=== PATIENT | female | born 1965 | race Caucasian/White ===

== ENCOUNTER 2022-07-31 14:21 | Outpatient (CLI) | payer OTHER, SELFPAY ==
[2022-07-31 14:53] LABS: Kit Draw Collected
== END 2022-07-31 14:22 | disposition home or self-care (01) ==
LOC: ANHGOSHLAB 14:23
PROVIDERS: PCP Internal Medicine; Visit Provider Clinical Nurse Specialist
DX: E78.5 Hyperlipidemia, unspecified (principal); R23.2 Flushing; M54.9 Dorsalgia, unspecified; Z13.228 Encounter for screening for other metabolic disorders
CPT/HCPCS: 36415

== ENCOUNTER 2022-08-20 13:34 | Outpatient (CLI) | payer OTHER, SELFPAY ==
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
== END 2022-08-20 13:35 ==
PROVIDERS: PCP Internal Medicine; Visit Provider Nurse Practitioner
DX: M47.892 Other spondylosis, cervical region (principal)
CPT/HCPCS: 72040

== ENCOUNTER 2022-08-28 11:00 | Outpatient (CLI) | payer OTHER, SELFPAY ==
--- NOTE | 2022-08-31 12:07 | WPDHOLTEREM ---
Holter/Event Monitor Holter/Event Monitor Date of procedure: 08/28/22 Holter/Event Procedure: 48 Hr Holter Monitor Indications: Palpitations Conclusion: 1. 48 hour holter monitor on 08/28/22. 2. Predominant rhythm is sinus rhythm. HR range 54-167 bpm; average 87 bpm. HR at 167 bpm was sinus tachycardia at 08:46. 3. There are 2,558 premature supraventricular complexes, 869 supraventricular couplets. There are 518 episodes of atrial tachycardia, fastest at 174 bpm and longest lasting 35 beats. 4. There are 671 premature ventricular complexes, 4 ventricular couplets, 16 ventricular bigeminy and 6 ventricular trigeminy. No ventricular tachycardia. 5. No sinoatrial or atrioventricular blocks. No significant pauses greater than 2 seconds. 6. No symptoms available for correlation.
== END 2022-08-28 11:01 | disposition home or self-care (01) ==
PROVIDERS: PCP Internal Medicine; Visit Provider Clinical Nurse Specialist
DX: R00.2 Palpitations (principal)
CPT/HCPCS: 93225; 93226

== ENCOUNTER 2024-03-30 15:19 | Outpatient (CLI) | payer OTHER, SELFPAY ==
--- OUTSIDE RECORDS SUMMARY | 2024-03-30 17:58 | XMS_ITS | Clinical Summary ---
Author Organization [facility] Address [address] [place] [address] Phone Care Team Providers Care Carry Out Clerk And Shelf Stocker Name Role Phone Richie Ellis DO Primary Care Provider Allergies No known active allergies Medications methylPREDNISol one (Medrol) 4 MG Tablet Therapy PackIndications :Allergic reaction, initial encounter Use as per instructions on package. 21 Tablet Active Active Problems No known active problems Family History Medical History Relation Name Comments Diabetes Maternal Grandmother Cancer Mother Relation Name Status Comments Maternal Grandmother Mother Social History Tobacco Use Types Packs/Day Years Used Date Smoking Tobacco: Never Smokeless Tobacco: Never Comments No Sex and Gender Information Value Date Recorded Sex Assigned at Not on file Legal Sex Female 5:25 PM CDT Gender Identity Not on file Sexual Orientation Not on file Last Filed Vital Signs Vital Sign Reading Time Taken Comments Blood Pressure 110/78 05/31/2020 8:07 AM CDT Pulse 89 05/31/2020 8:07 AM CDT Temperature 36.2 C (97.1 F) 05/31/2020 8:07 AM CDT Respiratory Rate 20 10/11/2018 5:53 PM CDT Oxygen Saturation 99% 05/31/2020 8:07 AM CDT Inhaled Oxygen Concentration - - Weight 56.7 kg (125 lb) 10/11/2018 5:53 PM CDT Height 160 cm (5' 3 ) 10/11/2018 5:53 PM CDT Body Mass Index 22.14 10/11/2018 5:53 PM CDT Plan of Treatment Health Maintenance Due Date Last Done Comments Hepatitis C Virus (HCV) Screening 1966 TdaP Immunization 1966 Hepatitis B Immunization (1 of 3 - 19+ 3-dose series) 1985 Pap Smear 08/17/1987 Cervical Cancer Screening (CCS) 1996 HPV/Cotest 1996 Colonoscopy 08/17/2011 Colorectal Cancer Screening 08/17/2011 Cologuard 2016 Immunochemical Fecal Occult Blood 2016 Mammogram 2016 Pneumococcal Immunization (5 0+ years) (1 of 1 - PCV) 2016 Zoster Immunization (1 of 2) 2016 Influenza Immunization (#1) 2023 SARS-COV-2 Immunization ( season) 2023 02/14/2021, 05/21/2020, 04/29/2020 Respiratory Syncytial Virus (RSV) Immunization (Adult) (1 - 1-dose 75+ series) 2041 Meningococcal Immunization (ACWY) Aged Out No longer eligible b ased on patient's age to complete this topic Pneumococcal Immunization Combined Aged Out No longer eligible b ased on patient's age to complete this topic Rotavirus Immunization Aged Out No lo nger eligible based on patient's age to complete this topic Care Teams Carry Out Clerk And Shelf Stocker Relationship Specialty Start Date End Date Richie Ellis DO [facility] [place] [address] PCP - General Internal Medicine 10/11/18
--- OUTSIDE RECORDS SUMMARY | 2024-03-30 17:58 | XMS_ITS | Clinical Summary ---
Author Organization [facility] Address [address] [place] [address] Phone Care Team Providers Care Telecom Sales Consultant Name Role Phone Maru Nash MD Primary Care Provider [phone] Allergies No known active allergies Medications multivitamin (DAILY-KRAIG) tablet Take 1 Tab by mouth daily. Active cyanocobalamin 1,000 mcg Tablet Take 1,000 mcg by mouth daily. Active vitamin E 1,000 unit Capsule Take 1,000 Units by mouth daily. Active Cholecalciferol, Vitamin D3, 1,000 unit Tablet Take 1,000 Units by mouth. Active acetaminophen-co deine (TYLENOL #3) 300-30 mg tablet Take 1 Tab by mouth every 4 hours as needed for Pain, Moderate. 10 Tab 0 10/02/2013 Active Active Problems No known active problems Encounters Date Type Department Care Team Description 03/03/2024 External Device Data [facility] ABSTRACTION Provider, Abstract 02/18/2024 External Device Data [facility] ABSTRACTION Provider, Abstract from Last 3 Months Social History Tobacco Use Types Packs/Day Years Used Date Smoking Tobacco: Never Alcohol Use Standard Drinks/Week Comments No 0 (1 standard drink = 0.6 oz pur e alcohol) Comments No Sex and Gender Information Value Date Recorded Sex Assigned at Not on file Legal Sex Female 10:04 AM CDT Gender Identity Not on file Sexual Orientation Not on file 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 Not on file Not on file Not on file Not on file Not on file Not on file Not on file Last Filed Vital Signs Vital Sign Reading Time Taken Comments Blood Pressure 112/60 03/30/2014 10:46 AM SCREEN TACKER Pulse 60 03/30/2014 10:46 AM SCREEN TACKER Temperature 37.1 C (98.8 F) 10/02/2013 12:31 PM CDT Respiratory Rate 17 10/02/2013 1:20 PM CDT Oxygen Saturation 100% 10/02/2013 1:20 PM CDT Inhaled Oxygen Concentration - - Weight 57.6 kg (127 lb) 03/30/2014 10:46 AM SCREEN TACKER Height 160 cm (5' 3 ) 03/30/2014 10:46 AM SCREEN TACKER Body Mass Index 22.5 03/30/2014 10:46 AM SCREEN TACKER Plan of Treatment Health Maintenance Due Date Last Done Comments DTAP/TDAP/TD VACCINES (1 - Tdap) 1985 HEPATITIS B VACCINES (1 of 3 - 19+ 3-dose series) 1985 COLORECTAL SCREENING 08/17/2011 Colorectal Cancer Screening 08/17/2011 FIT-DNA Q 3 years 08/17/2011 FIT/FOBT Q 1 year 08/17/2011 Flex Sig/CT Colonography Q 5 years 08/17/2011 CERVICAL CANCER SCREENING 07/21/2016 07/21/2013 ZOSTER VACCINE (1 of 2) 2016 INFLUENZA VACCINE (#1) 2023 BREAST CANCER SCREENING 06/05/2024 06/06/2023, 05/11 Procedures Procedure Name Priority Date/Time Associated Diagnosis Comments MAMMO 3D PATRICIA SCREEN BILAT W OR WO CAD Routine 06/06/2023 8:12 AM CDT Visit for screening mammogram CERV/VAG CYTOPATH, THIN PREP IMAGR RFLX HPV Routine 07/21/2013 5:37 PM CDT Menorrhagia from Last 3 Months or Most Recently Relevant to Health Maintenance Results * MAMMO 3D PATRICIA SCREEN BILAT W OR WO CAD (06/06/2023 8:12 AM CDT) Anatomical Region Laterality Modality Breast Bilateral Mammography 06/06/2023 8:13 AM CDT Impressions 06/06/2023 8:20 AM CDT IMPRESSION: NO MAMMOGRAPHIC EVIDENCE OF MALIGNANCY. OVERALL BIRADS CATEGORY:2 (benign findings). ROUTINE SCREENING MAMMOGRAPHY IS RECOMMENDED IN 12 MONTHS. A normal letter will be sent to patient. Narrative 06/06/2023 8:20 AM CDT EXAM: MAMMO 3D PATRICIA SCREEN BILAT W OR WO CAD STUDY DATE: 06/06/2023 8:12 AM CLINICAL INDICATION: 57 years old female presents for routine screening mammography. COMPARISON: Prior mammograms, the most recent dated 05/11/2022 PROCEDURE: CC and MLO digital mammographic views of the bilateral breasts are obtained. Computer Aided Detection (CAD) was utilized. Tomosynthesis was done with all views. FINDINGS: Breast Density: Scattered fibroglandular densities. Right breast: There are no spiculated masses, suspicious microcalcifications or areas of architectural distortion in the right breast. Left breast: There are stable biopsy clips in the left inner breast at mid to posterior depth. There are scattered benign calcifications in the left breast. There are no spiculated masses, suspicious microcalcifications or areas of architectural distortion in the left breast. Maya Linton DO MAMMO ORDERABLES Final Re sult * CERV/VAG CYTOPATH, THIN PREP IMAGR RFLX HPV (07/21/2013 5:37 PM CDT) PAP INTERP Negative for intraepithelial lesion or malignancy. [facility] [employer] SERVICES [facility] Comment: Performed by [facility], [address] [place] [id number] General Assembler Pap Comment This Pap test has been evaluated with computer assisted technology. [facility] [employer] [facility]: Satisfactory for evaluation. Endocervical/trans formation zone component present. Age and/or menstrual status not provided [employer] LABORATORY SERVICES [facility] CLINICAL INFORMATION PT IS N RESEARCH AEGEA [employer] [facility] SOURCE Information not provided [employer] [facility]ORY SERVICES [facility] PREV PAP: INFORMATION NOT PROVIDED [employer] [facility]ORATORY SERVICES [facility] CYTOTECHNOLOGI ST: MVB, CT(ASCP) [facility] LAST MENSTRUAL PERIOD INFORMATION NOT PROVIDED [facility] PREV BX: INFORMATION NOT PROVIDED [employer] [facility]ORATORY SERVICES [facility] Endocervical 07/21/2013 5:37 PM CDT 07/21/2013 6:24 PM CDT Comment:ENDOCERVICAL Narrative [facility] - 07/24/2013 7:04 PM CDT Patient is in the research AEGEA clinical trial. This study is for patients with menorrhagia. Patient enter into this study and ancticipate to continue for 3 years. Please contact Pili Bean RN, research coordinator at [phone], with any questions or problems. RESEARCH PATIENT DO NOT BILL INSURANCE. [id number] ecc Richie Wiseman MD PATHOLOGY/CYTOLOGY ORDERABLES Fi nal Result [facility]OR[facility] CLIA# [id number] [address] [place] [address] from Last 3 Months or Most Recently Relevant to Health Maintenance Insurance [facility] BLUE ACCESS/TRUE BLUE PPO ALL SAVERS CHOICE [id number] [facility] [id number] Advance Directives For more information, please contact: [phone] * Full Code (Latest Code Status on File) Date Activated Date Inactivated Comments 10/02/2013 11:59 AM 10/02/2013 5:34 PM * Full Code Date Activated Date Inactivated Comments 10/02/2013 10:36 AM 10/02/2013 11:59 AM Care Teams Telecom Sales Consultant Relationship Specialty Start Date End Date Maru Nash MD [address] [place] [address] PCP - General Internal Medicine 06/11/13
--- OUTSIDE RECORDS SUMMARY | 2024-03-30 17:58 | XMS_ITS | Referral Summary ---
Author Organization [facility] [address] [place] [address] Address [address] [place] [address] Care Team Providers Care Model Making Supervisor Name Role Phone Richie Ellis DO Primary Care Provider [phone] Encounters Date Type Department Care Team Description 02/04/2024 2:59 PM SUPERVISOR SHUTTLE FITTING - 02/04/2024 11:59 PM SUPERVISOR SHUTTLE FITTING Hospital Encounter [address] [address] Urinary tract infection with hematuria, site unspecified Discharge Disposition: Discharge to home or self care 02/04/2024 9:00 AM SUPERVISOR SHUTTLE FITTING Office Visit [facility] [place] [address] [place] [address] Mary Estes, FABIO Urinary tract infection with hematuria, site unspecified (Primary Dx) from Last 3 Months Allergies No known active allergies Medications rosuvastatin (CRESTOR) 20 mg tablet Take 1 tablet (20 mg total) by mouth daily 90 tablet 3 3 Active acetaminophen- codeine (TYLENOL with CODEINE #4) 300-60 mg per tabletIndicati ons:Renal colic on left side,Urinary tract infection in female Take 1 tablet by mouth every 6 (six) hours as needed for pain P.r.n. pain not relieved by ketorolac alone. Take with food. Collaborating physician Richie Early MD 15 tablet 3 Active ketorolac (TORADOL) 10 mg tablet Take 1 tablet (10 mg total) by mouth every 6 (six) hours as needed for pain Collaborating physician Richie Early MD 20 tablet 3 Active tamsulosin (FLOMAX) 0.4 mg extended release capsuleIndicat ions:Renal colic on left side Take 1 capsule (0.4 mg total) by mouth 2 (two) times a day Take as directed to help passed kidney stone. Collaborating physician Richie Early MD 20 capsule 3 Active metoclopramide (REGLAN) 10 mg tabletIndicati ons:Nausea Take 1 tablet (10 mg total) by mouth every 6 (six) hours P.r.n. nausea. Collaborating physician Richie Early MD 20 tablet 3 Active Active Problems Problem Noted Date Diagnosed Date Renal colic on left side 10/19/2022 Urinary tract infection in female 10/19/2022 Nausea 10/19/2022 Hypercholesteremia 10/02/2022 Assessment & Plan (10/02/2022 2:54 PM CDT): Lipids are very poorly controlled. As above, I added Crestor 20 mg daily. Continue diet and exercise. SVT (supraventricular tachycardia) 10/01/2022 Assessment & Plan (10/02/2022 2:54 PM CDT): As above, an echocardiogram will be obtained and she will monitor her rhythm using the [employer] sonny. Further recommendations will await these results. PVC (premature ventricular contraction) 10/02/19 23 Assessment & Plan (10/02/2022 2:53 PM CDT): The patient has had recent predominantly nocturnal palpitations with PVCs and brief SVT noted on Holter monitoring. I recommended she document her rhythm during symptoms using the [employer] sonny. An echocardiogram will be obtained to evaluate left ventricular and valvular function, and further recommendations will await these results. I added Crestor 20 mg daily for lipid control. Otherwise, I made no change in her medical regimen today. I advised her to continue to diet and exercise regularly. Social History Tobacco Use Types Packs/Day Years Used Date Smoking Tobacco: Never Smokeless Tobacco: Never Tobacco Cessation:Counseling Given: Not Answered Personal Safety Answer Date Recorded Have you ever been in or are you currently in a harmful physical or emotional relationship or is someone making you feel afraid or unsafe? Denies 10/19/2022 Comments Unknown Sex and Gender Information Value Date Recorded Sex Assigned at Not on file Legal Sex Female 1:57 AM SUPERVISOR SHUTTLE FITTING Gender Identity Not on file Sexual Orientation Not on file Last Filed Vital Signs Vital Sign Reading Time Taken Comments Blood Pressure 102/80 02/04/2024 8:43 AM SUPERVISOR SHUTTLE FITTING Pulse 80 02/04/2024 8:43 AM SUPERVISOR SHUTTLE FITTING Temperature 36.7 C (98 F) 02/04/2024 8:43 AM SUPERVISOR SHUTTLE FITTING Respiratory Rate 20 02/04/2024 8:43 AM SUPERVISOR SHUTTLE FITTING Oxygen Saturation 98% 02/04/2024 8:43 AM SUPERVISOR SHUTTLE FITTING Inhaled Oxygen Concentration - - Weight 59 kg (130 lb) 02/04/2024 8:43 AM SUPERVISOR SHUTTLE FITTING Height 160 cm (5' 3 ) 02/04/2024 8:43 AM SUPERVISOR SHUTTLE FITTING Body Mass Index 23.03 02/04/2024 8:43 AM SUPERVISOR SHUTTLE FITTING Plan of Treatment Not on file Procedures Procedure Name Priority Date/Time Associated Diagnosis Comments URINE CULTURE Routine 02/04/2024 3:00 PM SUPERVISOR SHUTTLE FITTING Urinary tract infection with hematuria, site unspecified POCT URINALYSIS DIPSTICK Routine 02/04/2024 8:48 AM SUPERVISOR SHUTTLE FITTING Urinary tract infection with hematuria, site unspecified from Last 3 Months Results * Urine culture Urine, bladder (02/04/2024 3:00 PM SUPERVISOR SHUTTLE FITTING) Report Final Report: Less than 100,000 colonies/mL (clinically insignificant growth based on current clinical standards) Comment:Testing performed by : [facility], [address] [facility], [place]., [address] Organism (CLINICALLY INSIGNIFICANT GROWTH [facility] Urine, bladder 02/04/2024 3: 00 PM SUPERVISOR SHUTTLE FITTING 02/04/2024 6:18 PM SUPERVISOR SHUTTLE FITTING Narrative [facility] - 02/05/2024 7:31 PM SUPERVISOR SHUTTLE FITTING Testing performed by [facility] Microbiology Laboratory ([phone]) Mary Estes NP LAB MICROBIOLOGY - [facility] [place] [id number] [address] Department [place] [address] * (ABNORMAL) POCT urinalysis dipstick (02/04/2024 8:48 AM SUPERVISOR SHUTTLE FITTING) Color, Urine, POC Yellow Clarity, ur, POC Cloudy(A) Clear Glucose, ur, POC Negative Negative MG/DL Bilirubin, ur, POC Negative Negative, Small, Moderate, Large Ketones, ur, POC Negative Negative Specific [place], POC 1.030 1.003 - 1.030 Blood, ur, POC Trace(A) Negative pH, ur, POC 6.0 5.0 - 8.0 Protein, ur, POC 100.(A) Negative Urobilinogen, urine, POC 0.2 0.2 - 1.0 mg/dL Nitrite, ur, POC Negative Negative Leukocytes, ur, POC Moderate(A) Negative Lot Number [id number] Urine 02/04/2024 8:48 AM SUPERVISOR SHUTTLE FITTING Mary Estes NP POINT OF CARE TEST OR DERABLES Final Result from Last 3 Months Insurance [employer] PLUS [employer] Care Teams Model Making Supervisor Relationship Specialty Start Date End Date Richie Ellis DO [address] [place] [address] [address] [place], [place] [id number] PCP - General Internal Medicine 10/09/22
--- OUTSIDE RECORDS SUMMARY | 2024-03-30 17:58 | XMS_ITS | Clinical Summary ---
Author Organization [facility] [address] [place] [address] [place] [phone] Care Team Providers Care Foreign Exchange Trader Name Role Phone Richie Ellis DO Primary Care Provider [phone] Allergies No known active allergies Medications rosuvastatin [...] she will monitor her rhythm using the [employer] sonny. Further recommendations will await these results. PVC (premature ventricular contraction) 10/02/19 Assessment & Plan (10/02/2022 2:53 PM CDT): The patient has had recent predominantly nocturnal palpitations with PVCs and brief SVT noted on Holter monitoring. I recommended she document her rhythm during symptoms using the [employer] sonny. An echocardiogram will be obtained to evaluate left ventricular and valvular function, and further recommendations will await these results. I added Crestor 20 mg daily for lipid control. Otherwise, I made no change in her medical regimen today. I advised her to continue to diet and exercise regularly. Encounters Date Type Department Care Team Description 02/04/2024 2:59 PM SCALES INSPECTOR - 02/04/2024 11:59 PM SCALES INSPECTOR Hospital Encounter [address] [address] Urinary tract infection with hematuria, site unspecified Discharge Disposition: Discharge to home or self care 02/04/2024 9:00 AM SCALES INSPECTOR Office Visit [facility] at [address] [place] [phone] Mary Estes NP Urinary tract infection with hematuria, site unspecified (Primary Dx) from Last 3 Months Medical History Medical History Date Comments Hx Other Medical Ablation 10/25 Family History Medical History Relation Name Comments Diabetes Other 1 Family history of Diabetes mellitus; Cancer Other 2 Family history of Cancer, unknown; Relation Name Status Comments Other 1 Other 2 Social History Tobacco Use Types Packs/Day Years [...] on file Legal Sex Female 1:57 AM SCALES INSPECTOR Gender Identity Not on file Sexual Orientation Not on file Obstetrics History Last Filed Vital Signs Vital Sign Reading Time Taken Comments Blood Pressure 102/80 02/04/2024 8:43 AM SCALES INSPECTOR Pulse 80 02/04/2024 8:43 AM SCALES INSPECTOR Temperature 36.7 C (98 F) 02/04/2024 8:43 AM SCALES INSPECTOR Respiratory Rate 20 02/04/2024 8:43 AM SCALES INSPECTOR Oxygen Saturation 98% 02/04/2024 8:43 AM SCALES INSPECTOR Inhaled Oxygen Concentration - - Weight 59 kg (130 lb) 02/04/2024 8:43 AM SCALES INSPECTOR Height 160 cm (5' 3 ) 02/04/2024 8:43 AM SCALES INSPECTOR Body Mass Index 23.03 02/04/2024 8:43 AM SCALES INSPECTOR Plan of Treatment Health Maintenance Due Date Last Done Comments Cervical Cancer Screening 1966 Colon Cancer Screening-Colonoscopy 1966 Depression Screening 1966 Hepatitis C Screening 1966 DTaP/Tdap/Td Vaccine (1 - Tdap) 1977 Hepatitis B Screening 1984 Regular Well Visit/Exam 18-64 1984 Zoster Vaccine (1 of 2) 2016 Covid-19 Vaccine (3 - 2023-2 5 season) 2023 05/21/2020, 04/29/2020 Influenza Vaccine (#1) 2023 Breast Cancer Screening-Mammogram 06/05/2024 06/06/2023, 06/06/2023, 05/11/2022 Pneumococcal vaccine <65 Aged Out No longer eligible based on patient's age to complete this topic Procedures Procedure Name Priority Date/Time Associated Diagnosis Comments URINE CULTURE Routine 02/04/2024 3:00 PM SCALES INSPECTOR Urinary tract infection with hematuria, site unspecified POCT URINALYSIS DIPSTICK Routine 02/04/2024 8:48 AM SCALES INSPECTOR Urinary tract infection with hematuria, site unspecified from Last 3 Months Results * Urine culture Urine, bladder (02/04/2024 3:00 PM SCALES INSPECTOR) Report Final Report: Less than 100,000 colonies/mL (clinically insignificant growth based on current clinical standards) Comment:Testing performed by : [facility], [address] [place]., [address] Organism (CLINICALLY INSIGNIFICANT GROWTH [facility] Urine, bladder 02/04/2024 3: 00 PM SCALES INSPECTOR 02/04/2024 6:18 PM SCALES INSPECTOR Narrative [facility] - 02/05/2024 7:31 PM SCALES INSPECTOR Testing performed by [facility] Microbiology Laboratory ([phone]) Mary Estes NP LAB MICROBIOLOGY - [facility] ORDERABLES Final Result [facility] [address] [address] Department [place] [address] * (ABNORMAL) POCT urinalysis dipstick (02/04/2024 8:48 AM SCALES INSPECTOR) Color, Urine, POC Yellow Clarity, ur, POC Cloudy(A) Clear Glucose, ur, POC Negative Negative MG/DL Bilirubin, ur, POC Negative Negative, Small, Moderate, Large Ketones, ur, POC Negative Negative Specific [place], POC 1.030 1.003 - 1.030 Blood, ur, POC Trace(A) Negative pH, ur, POC 6.0 5.0 - 8.0 Protein, ur, POC 100.(A) Negative Urobilinogen, urine, POC 0.2 0.2 - 1.0 mg/dL Nitrite, ur, POC Negative Negative Leukocytes, ur, POC Moderate(A) Negative Lot Number [id number] Urine 02/04/2024 8:48 AM SCALES INSPECTOR Mary Estes NP POINT OF CARE TEST OR DERABLES Final Result from Last 3 Months Insurance [facility] CHOICE PLUS [facility] CHOICE PLUS Care Teams Foreign Exchange Trader Relationship Specialty Start Date End Date Richie Ellis DO [address] [place] [address] [place] [address] PCP - General Internal Medicine 10/09/22
[2024-03-30 19:16] LABS: Basophils Percent Auto 0.5 % (0.2-1.2); Eosinophils Absolute Auto 0.3 K/mm3 (0-0.3); Eosinophils Percent Auto 3.5 % (0-4.4); Hematocrit 45.5 % (37.0-47.0); Hemoglobin 14.4 g/dL (12.0-15.0); Immature Granulocyte Absolute 0.03 K/mm3 (0.00-0.031); Immature Granulocyte Percent A 0.4 % (0-0.5); Lymphocytes Absolute Auto 2.08 K/mm3 (0.9-3.2); Lymphocytes Percent Auto 26.2 % (18.3-44.2); Mean Corpuscular HGB Conc 31.6 g/dl (32-36); Mean Corpuscular Hemoglobin 28.2 pg (26-34); Mean Corpuscular Volume 89.2 fl (80-100); Mean Platelet Volume 10.9 fl (7.4-10.4); Monocytes Absolute Auto 0.4 K/mm3 (0.1-0.6); Neutrophils Absolute Auto 5.1 K/mm3 (1.3-6.7); Neutrophils Percent Auto 64.4 % (45.5-73.1); Platelet Count Result 251 k/mm3 (150-375); Red Cell Distribution Width 12.5 % (11.5-14.5); White Blood Count 7.9 K/mm3 (4.5-10.0)
[2024-03-30 19:27] LABS: Free T4 Free Thyroxine 1.03 ng/dL (0.78-2.19)
[2024-03-30 21:40] LABS: Alanine Aminotransferase 27 U/L (6-35); Albumin Level 4.8 g/dL (3.5-5.1); Alkaline Phosphatase 78 U/L (38-126); Anion Gap 13 mmol/L (4-12); Aspartate Amino Transferase 23 U/L (14-36); Bilirubin,Total 0.9 mg/dL (0.2-1.3); Blood Urea Nitrogen 26 mg/dL (7-17); Calcium 10.2 mg/dL (8.4-10.2); Carbon Dioxide 26 mmol/L (22-30); Chloride 105 mmol/L (98-107); Cholesterol 190 mg/dL (0-200); Estimated Glomerular Filt Rate > 60; Glucose 102 mg/dL (65-110); HDL Direct 79 mg/dL; Potassium 4.1 mmol/L (3.4-5.0); Sodium 144 mmol/L (137-145); Triglycerides 130 mg/dL (<150)
[2024-03-30 21:50] LABS: Free T3 3.82 pg/mL (2.71-6.16); LDL Cholesterol Direct 80 mg/dL
[2024-04-02 08:53] LABS: Thyroid Peroxidase Antibodies 1 IU/mL (<9)
== END 2024-03-30 15:20 | disposition home or self-care (01) ==
LOC: ANHGOSHLAB 15:20
PROVIDERS: PCP Internal Medicine; Visit Provider Clinical Nurse Specialist
DX: E04.9 Nontoxic goiter, unspecified (principal); Z13.228 Encounter for screening for other metabolic disorders; E55.9 Vitamin D deficiency, unspecified; E78.2 Mixed hyperlipidemia; R00.2 Palpitations
CPT/HCPCS: 36415; 80053; 80061; 82306; 84439; 84443; 84481; 85025; 86376

== ENCOUNTER 2024-04-02 09:31 | Outpatient (CLI) | payer OTHER, SELFPAY ==
--- NOTE | ~2024-04-02 | US_ITS ---
EXAMINATION: US thyroid DATE: 04/02/2024 09:42 INDICATION: Nontoxic goiter, unspecified. TECHNIQUE: Multiple ultrasound images of the thyroid were obtained. COMPARISON: Thyroid scintigraphy 09/17/17 FINDINGS: The right thyroid lobe measures 4.6 x 2.0 x 2.2 cm. The left thyroid lobe measures 4.8 x 1.7 x 1.7 c m. In the right thyroid lobe, there is a 6 mm benign cystic nodule (TI-RADS TR1). There is increased vascularity in the thyroid. IMPRESSION: 1. Increased thyroid vascularity, which may be seen with chronic lymphocytic (Kathryn) thyroiditis or Graves' disease. Correlate with thyroid function tests. Reviewed, dictated and finalized at location A. FILTER OPERATOR IMPRESSION: 1. Increased thyroid vascularity, which may be seen with chronic lymphocytic (H ashimoto) thyroiditis or Graves' disease. Correlate with thyroid function tests .
== END 2024-04-02 09:32 | disposition home or self-care (01) ==
PROVIDERS: PCP Clinical Nurse Specialist; Visit Provider Clinical Nurse Specialist
DX: E04.9 Nontoxic goiter, unspecified (principal)
CPT/HCPCS: 76536